=== PATIENT | male | born 1975 | race Caucasian/White ===

== ENCOUNTER 2022-09-04 04:12 | Emergency (ER) | payer OTHER, SELFPAY ==
[2022-09-04 04:16] VITALS: BP 141/92; PULSE 96; RESP 18; TEMP 36.6; O2SAT 99
--- NOTE | 2022-09-04 07:19 | ED.LOWEXIN ---
HPI - Extremity Injury (Lower) General Chief Complaint: Extremity Injury, Lower Stated Complaint: R foot/ankle injury Time Seen by Provider: 09/04/22 07:04 Source: patient and RN notes reviewed Mode of arrival: ambulatory Limitations: no limitations History of Present Illness HPI Narrative: THis is a 47 year old male who presents for evaluation of right foot pain. He states yesterday a heavy object hit his right foot, but he was able to walk. This morning he reports waking up with 8/10 pain. He was applying ice yesterday after the event occurred. Today he has not taken any medication for his pain. He has noticed red area at location of hit. He denies numbness or tingling. He is using crutches to walk. Related Data Allergies Allergy/AdvReac Type Severity Reaction Status Date / Time azithromycin Allergy Mild UNKNOWN Verified 09/04/22 07:02 Quinolones Allergy Unknown UNKNOWN Verified 09/04/22 07:02 Review of Systems Musculoskeletal: Musculoskeletal: Reports arthralgias Integumentary/Breasts: Skin/Breast: Denies rash and Denies skin ulcer PMFSH Past Medical History Medical History (Updated 09/04/22 @ 07:25 by Kirsten So MD) Low back pain Family History Family History Father Family history of colonic diverticulitis Grandparent Diabetes mellitus Family history of malignant neoplasm of breast Social History Social History Smoking status: Never smoker Second hand tobacco smoke exposure: No Alcohol intake: never Alcohol use details: occasionally Substance use: never Substance use type: does not use Living arrangements: alone Occupation/Education: occupation Gender identity (if verbalized by the patient): Male Spiritual care concerns: No Agree to blood products: No Exam Const: General: no acute distress and alert Nutritional Appearance: well nourished Orientation/consciousness: patient oriented x3 HENMT: Head: normal to inspection Eyes: EOM: EOMs intact bilaterally Resp: Effort & Inspection: normal respiratory effort Skin: Rashes: no rashes Wounds: no wounds Other: there is mild redness dorsum lateral right foot, no wound Neuro: General: patient oriented x3, moves all extremities and CN's II-XI intact bilaterally Extrem: General: no clubbing, cyanosis or edema and no pedal edema Other: point tenderness to right dorsum foot. strong pedal pulses. FROM Psych: Mental Status: mental status grossly normal Affect: normal affect Attitude: cooperative Course Reevaluation(s) Reevaluation #1: I discussed with patient that his xrays were negative for fracture. He should continue treatment with ice and NSAIDs Date: 09/04/22 Time: 07:23 Vital Signs Vital signs: Vital Signs Temperature 98 F 09/04/22 04:16 Pulse Rate 96 09/04/22 04:16 Respiratory Rate 18 09/04/22 04:16 Blood Pressure 141/92 H 09/04/22 04:16 Pulse Oximetry 99 09/04/22 04:16 Oxygen Delivery Room Air 09/04/22 04:16 Temperature 98 F 09/04/22 04:16 Pulse Rate 96 09/04/22 04:16 Respiratory Rate 18 09/04/22 04:16 Blood Pressure 141/92 H 09/04/22 04:16 Pulse Oximetry 99 09/04/22 04:16 Oxygen Delivery Room Air 09/04/22 04:16 MDM - Extremity Injury (Lower) Differential Diagnosis Differential diagnosis: Likely ankle sprain and strain, ankle fracture and other (foot contusion vs foot fracture) Imaging Data Radiologist's impression: ITS Impressions Ankle X-Ray 09/04/22 06:01 Impression: Unremarkable right ankle. Foot X-Ray 09/04/22 06:01 Impression: Unremarkable right foot radiographs. Discharge Plan Discharge Clinical Impression: Contusion of foot, right Qualifiers: Encounter type: initial encounter Qualified Code(s): S90.31XA - Contusion of right foot, initial encounter Patient Disposition: Home, Self-Care
== END 2022-09-04 08:04 | disposition home or self-care (01) ==
LOC: ANHED 07:35
PROVIDERS: Emergency Provider General Practice; PCP Family Medicine
DX: S90.31XA Contusion of right foot, initial encounter (principal); W22.8XXA Striking against or struck by other objects, initial encounter
CPT/HCPCS: 73610; 73630; 99283

== ENCOUNTER → 2022-10-09 15:21 | Outpatient (CLI) | payer OTHER, SELFPAY ==
--- NOTE | ~2022-10-09 | CT_ITS ---
EXAMINATION: CT abdomen pelvis wo con DATE: 10/09/2022 15:48 INDICATION: Calculus of kidney. TECHNIQUE: Computed tomography (CT) of the abdomen and pelvis was performed without intravenous contr ast. Automated exposure control and iterative reconstruction technique were employed. The dose-length product was 756.13 mGy-cm. COMPARISON: CT abdomen and pelvis 07/06/2011 FINDINGS: The visualized portions of the lung bases are clear without pneumonia or pleural effusion. The heart size is normal. No pericardial effusion. The liver, gallbladder, spleen, pancreas, and adre nal glands are normal. There is a 1.8 cm stone in right kidney. There is urothelial thickening in the right renal pelvis and right ureter. There is fat stranding around the right renal pelvis. There is a 6 mm stone in distal right ureter. There is mild right hydronephrosis. There are approximately 10 s tones in the left kidney and left renal pelvis measuring up to 13 mm. There is urothelial thickening of the left renal pelvis with adjacent fat stranding. The prostate is mildly enlarged. There are bila teral inguinal hernias containing fat. There is diverticulosis of the colon without evidence of diver ticulitis. The appendix is normal. There are no dilated loops of bowel. There are no pathologically e nlarged lymph nodes. There is no free intraperitoneal fluid. There are bridging endplate osteophytes at multiple levels in the thoracic spine, consistent with diffuse idiopathic skeletal hyperostosis (D JACOBO). There is mild lumbar spondylosis. IMPRESSION: 1. 6 mm stone in the distal right ureter with mild right hydronephrosis. 2. Bilateral nonobstructing kidney stones. 3. Bilateral pyelitis. Reviewed, dictated and finalized at location A.
--- NOTE | ~2022-10-09 | XR_ITS ---
EXAMINATION: XR abdomen/kub 1V DATE: 10/09/2022 15:48 INDICATION: Calculus of kidney. TECHNIQUE: A supine view of the abdomen on 2 radiographs was obtained. COMPARISON: CT abdomen and pelvis 09/19/2022 FINDINGS: There is a 6 mm stone or cluster of stones in distal right ureter. There is a 1.8 cm stone in right kidney. There are approximately 10 stones in left kidney and left renal pelvis measuring up to 13 mm. IMPRESSION: 1. Stones in the kidneys and distal right ureter. Reviewed, dictated and finalized at location A.
== END ==
PROVIDERS: PCP Family Medicine
DX: N13.6 Pyonephrosis (principal)
CPT/HCPCS: 74018; 74176

== ENCOUNTER 2022-11-06 00:25 | Day surgery (SDC) | payer OTHER, SELFPAY ==
[2022-11-01 15:37] VITALS: BMI 31.9
--- NOTE | 2022-11-01 15:43 | PC.NURSE ---
Report to the Outpatient Waiting Room, entrance under the green pavilion located off [facility], at time 10:30 on date 11/06/22. Planned Procedure Time: 12:30. Time changes happen often and if your time is changed the preop area will call you the afternoon before. - You and your visitor will be asked to self-screen and do not enter if you have any COVID symptoms. - A mask is optional within the hospital at this time. Patients may have clear liquids (water, carbonated beverages, clear teas, apple juice) until 3 hours prior to surgery (9:30) with a maximum of 20 ounces. - No food from midnight until time of surgery Take the following medications with a SIP of water the morning of surgery: TYLENOL IF NEEDED DO NOT STOP ANY OF YOUR OTHER PRESCRIPTION MEDICATIONS PRIOR TO SURGERY EXCEPT THE FOLLOWING Medications to discontinue per physician: MELOXICAM Date to take last dose: PER DR. MONTILLA Please no make-up, nail setswana, hairspray, perfume, deodorant, or body powder the day of surgery. No jewelry (including any body piercings) or valuables the day of surgery, leave them at home. Please take a shower or bath the night before, or the morning of, surgery with an antibacterial soap. Wear comfortable, loose fitting clothing. - Jewelry must be removed prior to entering the operating room. Rings and piercings that are not removed may be cut off. - The hospital will not accept responsibility for valuables. - Please leave all valuables, including medications, at home the day of surgery. If you are going home after surgery, a licensed skip load driver must drive you home. - NO public transportation without another adult if you receive anesthesia. - We recommend that an adult stay with you for 24 hours following discharge. - We also recommend that you do not drive, make important decision, drink alcoholic beverages, or take any drugs that were not prescribed by your health care provider for at least 24 hours after your discharge time. Follow any additional instructions given to you from your surgeon. If you or anyone in your household have experienced Covid symptoms in the past week, please notify your surgeon or the nurse liaison at the phone number below for possible testing. Telephone instructions given to PT - JUAN DIEGO CAMPBELL and asked if any additional questions and then verbalized understanding. Patient advised to call surgeon office or pre surgery nurse liaison [phone] if any additional questions.
[2022-11-06] VITALS (8 sets, daily range): BP systolic 116–147; BP diastolic 74–100; PULSE 69–90; RESP 12–20; TEMP 36.1–36.4; O2SAT 98–100
--- NOTE | ~2022-11-06 | XR_ITS ---
EXAMINATION: XR retrograde pyelogram BI DATE: 11/06/2022 12:04 INDICATION: Right internal ureteral stent placement TECHNIQUE: Fluoroscopic images from a right internal ureteral stent placement are submitted for oriana radford 47 seconds of fluoroscopy time. FINDINGS: Left retrograde pyelogram demonstrates multiple filling defects in the left renal pelvis, c onsistent with stones. There is a right double-J internal ureteral stent projecting in expected position, with proximal [place] loop at the level of the renal pelvis and distal loop in the pelvis within the bladder lumen. IMPRESSION: 1. Right internal ureteral stent placement. Please refer to real-time procedural findings for detai ls. Reviewed, dictated and finalized at location L. IMPRESSION: 1. Right internal ureteral stent placement. Please refer to real-time procedu ral findings for details.
--- NOTE | 2022-11-06 09:42 | WPDHPUPDATE1 ---
History and Physical Update Update Date/Time: 11/06/22 09:42 History and Physical has been reviewed, including an updated exam of the patient. There are NO changes in the patient's condition. Risks, benefits, and alternatives have been discussed and questions answered. Patient agrees to proceed with procedure. Proceed with cysto, right retrograde pyelogram, right ureteroscopy with holmium laser, stone extraction, stent placement
--- NOTE | 2022-11-06 10:30 | WPDANESEPPF ---
Anes - Initial Pre Proc Eval Procedure: Operation Date: 11/06/22 12:00 Proposed Procedures p Cystoscopy, Right Ureteroscopy, Right Stone Extraction, Right Retrograde Pyelogram, Right Stent Placement, Possible Holmium Laser Lithotripsy - Pastor Doe MD Date/Time: 11/06/22 10:30 Surgeon: Pastor Doe MD Pre Op Diagnosis: Rt Ureteral Stone Patient Data Age: 47 Gender: M Height: 1.8 m Weight: 104 kg Allergies Allergy/AdvReac Type Severity Reaction Status Date / Time azithromycin Allergy Mild UNKNOWN Verified 11/01/22 15:47 Quinolones Allergy Unknown Other Verified 11/01/22 15:35 Home Medications Medication Instructions Recorded Confirmed Type acetaminophen 500 mg tablet 1,000 mg PO QID PRN Pain 11/01/22 11/01/22 History cyclobenzaprine 10 mg tablet 10 mg PO TID PRN Muscle Spasm 11/01/22 11/01/22 History meloxicam 15 mg tablet 15 mg PO DAILY PRN Pain 11/01/22 11/01/22 History tamsulosin 0.4 mg capsule 0.4 mg PO DAILY 11/01/22 11/01/22 History turmeric 400 mg capsule 1 mg PO DAILY 11/01/22 11/01/22 History Laboratory Tests 11/06/22 10:21 Urine Color Pending Urine Appearance Pending Urine pH Pending Ur Specific Nunnelly Pending Urine Protein Pending Urine Glucose (UA) Pending Urine Ketones Pending Ur Blood (Man) Pending Urine Nitrate Pending Urine Bilirubin Pending Urine Urobilinogen Pending Leukocyte Esterase Rfl Pending Patient hx anesthesia problems: none Family hx anesthesia problems: none Results Review: All pre-operative results and documents have been reviewed as part of the pre-operative evaluation. [facility] Past Medical History Medical History Low back pain Family History Family History Father Family history of colonic diverticulitis Grandparent Diabetes mellitus Family history of malignant neoplasm of breast Social History Social History Smoking status: Former smoker Tobacco type: cigars Second hand tobacco smoke exposure: No Alcohol intake: current Alcohol use details: RARE Substance use: current Substance use type: marijuana Living arrangements: alone Occupation/Education: occupation Gender identity (if verbalized by the patient): Male Spiritual care concerns: No Agree to blood products: No Anes - Eval Final PreProcedure Day of Procedure 11/06/22 10:30 Patient weight: obese Heart: regular rate and rhythm Lungs: clear to auscultation Airway: Mallampati scale class II Neurological: alert and oriented Last oral intake: >/= 8 hours ASA classification: II Emergent: no Anesthetic plan: proceed Anesthesia type and monitoring: general LMA and standard monitoring Results Review: All pre-operative results and documents have been reviewed as part of the pre-operative evaluation. Informed Consent: The patient's anesthetic plan and its attendant risks and benefits were discussed with the patient/family/POA. Questions were solicited and answers provided to the satisfaction of the patient/family/POA.
[2022-11-06] MEDS: LACTATED RINGERS 1,000 ML 30 ML IV CONT (10:31)
[2022-11-06 10:35] LABS: Appearance Urine Clear (Clear); Bacteria Urine None Seen /hpf; Bilirubin Urine Negative (Negative); Blood Urine 2+ (Negative); Color Urine Yellow (Yellow); Glucose Urine UA Negative (Negative); Ketones Urine Negative (Negative); Leukocyte Esterase Ur 2+ LEU/UL (Negative); Nitrate Urine Negative (Negative); Protein Urine 2+ mg/dL (Negative); RBC Urine 21-50 /hpf (0-2); Specific Grav Ur 1.017 (1.001-1.035); Squamous Epithelial Cell Urine None seen /hpf (Few); Urobilinogen Urine 0.2 mg/dL (<2.0); WBC Urine >100 /hpf; pH Urine 6.5 (5.0-9.0)
[2022-11-06 10:38] LABS: Add Urine Microscopic? YES
[2022-11-06] MEDS: ceFAZolin 2 GM/D5W 50 ML 2 GM/50 ML BAG IVPB (10:54)
[2022-11-06] MEDS: LIDOCAINE HCL 2% GEL UROJET 10 ML PKG MUCOUS MEM (11:36)
--- NOTE | 2022-11-06 11:57 | P.OP_ITS ---
Procedure Note - Detailed Date of Procedure 11/06/22 Pre-op Diagnosis Rt Ureteral Stone 6-7 mm, 18 mm right renal pelvic stone, left lower quadrant discomfort Post-op Diagnosis Same Procedure Performed Cystoscopy, right ureteroscopy with extraction of right distal ureteral calculus, right ureteroscopy with holmium laser of right renal pelvic stone 18 mm, bilateral retrograde pyelograms, right ureteral stent placement 4.8 Prydeinig contour Surgeon Pastor Doe MD Anesthesia General Description of Procedure Patient was taken to the operative suite correctly identified. Once anesthesia was obtained he was placed in dorsal lithotomy position and prepped and draped usual sterile fashion. Twenty-two Prydeinig scope was inserted bladder. There were no tumors noted. The right ureteral orifice was cannulated with a guidewire. Rigid ureteral scope was inserted after I dilated the orifice with an 8/10 dilator. The stone was visualized. Using escape basket I was able to retrieved and sent for analysis. I then placed a ureteral access sheath in. A mini flexible ureteral scope was passed up into the kidney. He has an 18 mm right renal pelvic stone. We dusted the stone. All the pieces were extremely small or dust. I then did a pyelogram to confirm placement of the stent. 4.8 Prydeinig contour stent was placed with the proximal end coiled in the renal pelvis and the distal in the bladder. Given his slight discomfort in the left side I then did a pyelogram. I did not feel see any discrete filling defects in the ureter. The bladder was drained. 2% viscous lidocaine was inserted into the urethra patient is taken recovery stable condition. He will follow-up in 1-2 weeks with a KUB for most likely stent removal on the right. He will then require a PCNL on the left side by 1 of my partners. This completes the dictation. Please send a copy to my office Estimated Blood Loss 0 Drains Yes Packing No Pathology Yes Complications No immediate complications Condition Stable Disposition PACU
[2022-11-06] MEDS: oxyCODONE HCL (*CRX) 5 MG TAB IR PO (13:00)
== END 2022-11-06 12:35 | disposition home or self-care (01) ==
PROVIDERS: PCP Family Medicine; Visit Provider Urology
PROC: (CPT 52352; principal; 2022-11-06 12:00)
DX: N20.2 Calculus of kidney with calculus of ureter (principal)
CPT/HCPCS: 52356; 52352; 74420; 81001; 82365; 87086; 88300; A9270; C1758; C1769; C1894; C2617; J0690; J2250; J2405; J2704; J3010; J7120

== ENCOUNTER → 2022-11-21 12:08 | Outpatient (CLI) | payer OTHER, SELFPAY ==
--- NOTE | ~2022-11-21 | XR_ITS ---
XR abdomen/kub 1V DATE: 11/21/2022 12:39 INDICATION: Right renal stone TECHNIQUE: 2 AP views COMPARISON: 11/06/2022 retrograde pyelogram 10/09/2022 KUB 10/09/2022 CT abdomen pelvis 10/09/2022 KUB FINDINGS: More than 10 stones are again noted overlying left renal pelvis and the mid and lower pole left kidney. There is a right internal urinary stent, proximal pigtail overlying the expected position of the prox imal right ureter at the L1-2 level, distal pigtail overlying the right side of the urinary bladder. Probable faintly calcified stone fragments are noted overlying the lower pole the right kidney and li rika the proximal right ureter. Noncontrast CT examination would be more definitive for detection of the stone fragments from presumed recent right lithotripsy of 9.5 x 14 mm calcified stone noted on . No evidence of bowel obstruction. The psoas shadows are intact. No apparent visceromegaly. Diffuse idiopathic skeletal hyperostosis of the thoracic spine. Mild degenerative change of the lumba r spine. IMPRESSION: Probable small faintly calcified lithotripsy stone fragments of lower pole of right kidne y and proximal right ureter Right internal urinary stent Multiple left renal calculi Reviewed, dictated and finalized at Location A. Reviewed, dictated and finalized at location [] IMPRESSION: Probable small faintly calcified lithotripsy stone fragments of low er pole of right kidney and proximal right ureter Right internal urinary stent Multiple left renal calculi
== END ==
PROVIDERS: PCP Family Medicine; Visit Provider Urology
DX: N20.0 Calculus of kidney (principal)
CPT/HCPCS: 74018

== ENCOUNTER → 2022-11-27 15:24 | Outpatient (CLI) | payer OTHER, SELFPAY ==
--- NOTE | ~2022-11-27 | CT_ITS ---
EXAMINATION: CT abdomen pelvis wo con DATE: 11/27/2022 15:46 INDICATION: Renal stone TECHNIQUE: Computed tomography (CT) of the abdomen and pelvis was performed without intravenous contr ast. The dose-length product was 799.49 mGy-cm. Automated exposure control and iterative reconstructi on technique were employed. COMPARISON: CT dated 10/09/2022. FINDINGS: Lung bases are unremarkable. Heart size normal. No significant pleural or pericardial effus ion. The liver, spleen, pancreas, adrenal glands and are unremarkable. Gallbladder is present. Nonobstruct chaz bowel pattern. Normal appendix. Colonic diverticulosis without evidence for diverticulitis. There are multiple bilateral renal stones. There is a right internal ureteral stent in expected posit ion. There is mild urothelial enhancement of the right renal pelvis and proximal ureter with subtle s urrounding edema. Bladder is decompressed. Colonic diverticulosis without evidence for diverticulitis . There is a fat-containing left inguinal hernia. No significant vascular abnormality. No lymphadenop athy. There is osteoarthritis of the hips. There is mild lumbar spondylosis. IMPRESSION: 1. Nonobstructing bilateral renal stones. Right internal ureteral stent in expected position. 2: Mild urothelial enhancement of the right renal pelvis and proximal ureter with subtle surrounding inflammation. Cannot exclude ascending urinary tract infection. Reviewed, dictated and finalized at location [] IMPRESSION: 1. Nonobstructing bilateral renal stones. Right internal ureteral stent in expe cted position. 2: Mild urothelial enhancement of the right renal pelvis and proximal ureter w ith subtle surrounding inflammation. Cannot exclude ascending urinary tract inf ection.
== END ==
PROVIDERS: PCP Urology; Visit Provider Urology
DX: N20.0 Calculus of kidney (principal)
CPT/HCPCS: 74176

== ENCOUNTER 2022-12-11 00:34 | Day surgery (SDC) | payer OTHER, SELFPAY ==
--- NOTE | 2022-12-06 10:06 | PC.NURSE ---
Report to the Outpatient Waiting Room, entrance under the green pavilion located off [facility], at time 1130 on date 12/11/22. Planned Procedure Time: 1330. Time changes happen often and if your time is changed the preop area will call you the afternoon before. - You and your visitor will be asked to self-screen and do not enter if you have any COVID symptoms. - A mask is optional within the hospital at this time. Patients may have clear liquids (water, carbonated beverages, clear teas, apple juice) until 3 hours prior to surgery with a maximum of 20 ounces. - No food from midnight until time of surgery Take the following medications with a SIP of water the morning of surgery: TYLENOL OR TRAMADOL IF NEEDED DO NOT STOP ANY OF YOUR OTHER PRESCRIPTION MEDICATIONS PRIOR TO SURGERY ?EXCEPT THE FOLLOWING Medications to discontinue per physician: N/A Date to take last dose: N/A Please no make-up, nail hungarian, hairspray, perfume, deodorant, or body powder the day of surgery. No jewelry (including any body piercings) or valuables the day of surgery, leave them at home. Please take a shower or bath the night before, or the morning of, surgery with an antibacterial soap. Wear comfortable, loose fitting clothing. - Jewelry must be removed prior to entering the operating room. Rings and piercings that are not removed may be cut off. - The hospital will not accept responsibility for valuables. - Please leave all valuables, including medications, at home the day of surgery. If you are going home after surgery, a licensed sales warehouse driver must drive you home. - NO public transportation without another adult if you receive anesthesia. - We recommend that an adult stay with you for 24 hours following discharge. - We also recommend that you do not drive, make important decision, drink alcoholic beverages, or take any drugs that were not prescribed by your health care provider for at least 24 hours after your discharge time. Follow any additional instructions given to you from your surgeon. If you or anyone in your household have experienced Covid symptoms in the past week, please notify your surgeon or the nurse liaison at the phone number below for possible testing. Telephone instructions given to PT Idania CAMPBELL and asked if any additional questions and then verbalized understanding. Patient advised to call surgeon office or pre surgery nurse liaison [phone] if any additional questions.
[2022-12-06 10:11] VITALS: BMI 30.7
[2022-12-11] VITALS (7 sets, daily range): BP systolic 113–136; BP diastolic 84–99; PULSE 62–72; RESP 15–19; TEMP 36.1–36.2; O2SAT 98–100; BMI 31.0
--- NOTE | ~2022-12-11 | XR_ITS ---
EXAMINATION: XR retrograde pyelo w/stent RT DATE: 12/11/2022 12:20 CDT INDICATION: RETRO/STENT . TECHNIQUE: 8 fluoroscopic images of the abdomen and pelvis were obtained during right retrograde pyel ography with stent placement performed by the surgeon. I was not present in the operating room. Fluor oscopy exposure time was 17.4 seconds. DAP [id number] [id number]. COMPARISON: CT abdomen pelvis 11/27/2022 FINDINGS: Second Shift Supervisor views reveal the presence of a right ureteral stent. Wire and catheter access into the upper co llecting system was then obtained, followed by deployment of a new stent, into good position. IMPRESSION: Fluoroscopic documentation of right retrograde pyelography with stent placement. Please refer to the operative note for complete procedural details. Reviewed, dictated and finalized at location K. IMPRESSION: Fluoroscopic documentation of right retrograde pyelography with stent placement . Please refer to the operative note for complete procedural details.
[2022-12-11] MEDS: LACTATED RINGERS 1,000 ML 30 ML IV CONT ×2 (10:55→12:55)
--- NOTE | 2022-12-11 11:19 | WPDANESEPPF ---
Anes - Initial Pre Proc Eval Procedure: Operation Date: 12/11/22 12:30 Proposed Procedures p Cystoscopy with Right Stent Removal - Pastor Doe MD Date/Time: 12/11/22 11:19 Surgeon: Pastor Doe MD Pre Op Diagnosis: retained right stent Patient Data Age: 47 Gender: M Height: 1.8 m Weight: 100.9 kg Last Vital Signs Temp 97.2 F L 12/11/22 10:35 Pulse 62 12/11/22 10:35 Resp 18 12/11/22 10:35 BP 113/85 12/11/22 10:35 Pulse Ox 99 12/11/22 10:35 O2 Del Method Room Air 12/11/22 10:35 Allergies Allergy/AdvReac Type Severity Reaction Status Date / Time azithromycin Allergy Mild UNKNOWN Verified 12/11/22 10:43 Quinolones Allergy Unknown Other Verified 12/11/22 10:43 Home Medications Medication Instructions Recorded Confirmed Type acetaminophen 500 mg tablet 1,000 mg PO QID PRN Pain 11/01/22 12/06/22 History tamsulosin 0.4 mg capsule 0.4 mg PO DAILY 11/01/22 12/06/22 History oxybutynin chloride 5 mg tablet 5 mg PO TID 12/06/22 12/06/22 History tramadol 50 mg tablet 50 mg PO Q6H PRN Pain 12/06/22 12/06/22 History Patient hx anesthesia problems: none Family hx anesthesia problems: none Results Review: All pre-operative results and documents have been reviewed as part of the pre-operative evaluation. [facility] Past Medical History Medical History Low back pain Family History Family History Father Family history of colonic diverticulitis Grandparent Diabetes mellitus Family history of malignant neoplasm of breast Social History Social History Smoking status: Former smoker Tobacco type: cigars Second hand tobacco smoke exposure: No Alcohol intake: current Alcohol use details: RARE Substance use: current Substance use type: marijuana Living arrangements: alone Occupation/Education: occupation Gender identity (if verbalized by the patient): Male Spiritual care concerns: No Agree to blood products: No Anes - Eval Final PreProcedure Day of Procedure 12/11/22 11:19 Patient weight: obese Heart: regular rate and rhythm Lungs: clear to auscultation Airway: Mallampati scale class II Neurological: alert and oriented Last oral intake: >/= 8 hours ASA classification: II Emergent: no Anesthetic plan: proceed Anesthesia type and monitoring: general LMA and standard monitoring Results Review: All pre-operative results and documents have been reviewed as part of the pre-operative evaluation. Informed Consent: The patient's anesthetic plan and its attendant risks and benefits were discussed with the patient/family/POA. Questions were solicited and answers provided to the satisfaction of the patient/family/POA.
--- NOTE | 2022-12-11 11:19 | WPDHPUPDATE1 ---
History and Physical Update Update Date/Time: 12/11/22 11:19 History and Physical has been reviewed, including an updated exam of the patient. There are NO changes in the patient's condition. Risks, benefits, and alternatives have been discussed and questions answered. Patient agrees to proceed with procedure. Proceed with cysto with ureteral stent removal
--- NOTE | 2022-12-11 11:28 | WPDHPUPDATE1 ---
History and Physical Update Update Date/Time: 12/11/22 11:28 History and Physical has been reviewed, including an updated exam of the patient. There are NO changes in the patient's condition. Risks, benefits, and alternatives have been discussed and questions answered. Patient agrees to proceed with procedure. Review of ct shows stones in renal pelvis and lower pole. Will plan on cysto, right retrograde, right ureteroscopy with laser, stent exchange.
[2022-12-11] MEDS: ceFAZolin 2 GM/D5W 50 ML 2 GM/50 ML BAG IVPB (11:51)
[2022-12-11] MEDS: LIDOCAINE HCL 2% GEL UROJET 10 ML PKG MUCOUS MEM (12:43)
--- NOTE | 2022-12-11 12:48 | P.OP_ITS ---
Procedure Note - Detailed Date of Procedure 12/11/22 Pre-op Diagnosis retained right stent, right renal calculi Post-op Diagnosis Same Procedure Performed Cystoscopy, right retrograde pyelogram, right ureteroscopy with holmium laser, right ureteral stent exchange Surgeon Pastor Doe MD Anesthesia General Description of Procedure Patient is taken the operative suite correctly identified. Once anesthesia was obtained was placed in dorsal lithotomy position prepped draped usual sterile fashion. Nineteen [place] scope inserted the bladder. The stent was grasped brought out to the meatus. We could not get a wire through it due to calcification. This was then removed. A guidewire was then passed up into the orifice up to the kidney. Ureteral access sheath was placed. Mini flexible scope was inserted. Patient S kidney was inspected in its entirety. He had couple of calices that had small stones present. Using a 200 micron fiber we dusted these further. There were no large stones noted. Most likely these CT findings were layering in the stone. None the less was no significant stone burden at termination procedure. Pyelogram was then performed confirm placement stent. 4.8 [place] contour stent was then placed with proximal end coiled in the renal pelvis and the distal in the bladder. We left a string attached to the could be removed in a couple of days. This completes dictation this patient please send a copy this note to my office. Drains Yes Packing No Pathology None sent Complications No immediate complications Condition Stable Disposition PACU
[2022-12-11] MEDS: oxyCODONE HCL (*CRX) 5 MG TAB IR PO (14:10)
--- NOTE | 2022-12-11 14:13 | SUR.PHASEII ---
Spoke with Dr. Doe regarding patient's request for work excuse note. Dr. Reyes stated patient can return to work on Saturday. Also notified Dr. Doe patient was requesting prescription for pain medication.
== END 2022-12-11 14:30 | disposition home or self-care (01) ==
PROVIDERS: PCP Family Medicine; Visit Provider Urology
PROC: (CPT 52310; principal; 2022-12-11 12:30)
DX: N20.0 Calculus of kidney (principal); Z87.891 Personal history of nicotine dependence; F12.90 Cannabis use, unspecified, uncomplicated; E66.9 Obesity, unspecified; Z68.31 Body mass index [BMI] 31.0-31.9, adult
CPT/HCPCS: 52356; 74420; A9270; C1894; C2617; J0690; J1100; J2250; J2704; J3010; J7120; Q9966

== ENCOUNTER 2022-12-24 17:34 | Outpatient (CLI) | payer OTHER, SELFPAY ==
[2022-12-24 18:04] LABS: Amylase 112 U/L (30-110); Lipase 83 U/L (23-300)
== END 2022-12-24 17:35 | disposition home or self-care (01) ==
LOC: ANHLAB 17:36
PROVIDERS: PCP Family Medicine; Visit Provider Physician Assistant
DX: R10.9 Unspecified abdominal pain (principal)
CPT/HCPCS: 36415; 82150; 83690

== ENCOUNTER → 2022-12-28 08:37 | Outpatient (CLI) | payer OTHER, SELFPAY ==
--- NOTE | ~2022-12-28 | XR_ITS ---
EXAMINATION: XR abdomen/kub 1V INDICATION: Calcium kidney stone TECHNIQUE: Supine views of the abdomen were obtained on 2 radiographs. COMPARISON: 11/21/2022; CT, 11/27/2022 FINDINGS: The right internal ureteral stent has been removed. No definite right-sided urolithiasis is identified. Multiple stones are again noted in the left renal pelvis which measure up to 10 [address]. At l east six additional stones are noted in the left kidney which measure up to 9 mm. No stones are ident ified in the ureters or the urinary bladder. The bowel gas pattern is normal. 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 IMPRESSION: 1. Interval removal of the right internal ureteral stent without evidence of right sided urolithiasis . 2. Multiple stones of the left kidney including multiple stones in the left renal pelvis. Reviewed, dictated and finalized at location B. IMPRESSION: 1. Interval removal of the right internal ureteral stent without evidence of ri ght sided urolithiasis. 2. Multiple stones of the left kidney including multiple stones in the left evonne al pelvis.
--- NOTE | ~2022-12-28 | US_ITS ---
Renal-Bladder ultrasound Clinical History: Renal stone Technique: Real-time sonographic imaging of the kidneys and urinary bladder was performed. Findings: The right kidney measures 13.3 cm in length and the left kidney measures 12.8 cm. Multiple left renal stones are present, measuring up to 17 mm in maximum diameter. There is probable mild left hydronephrosis. No right renal stone or right hydronephrosis evident. Renal cortical echogenicity is within normal limits. No renal mass lesion is identified. The urinary bladder is moderately distended at the time of this exam. No intraluminal echoes are iden tified. No abnormal wall thickening is seen. Impression: Multiple left renal stones and probable mild left hydronephrosis. Reviewed, dictated and finalized at location . Impression: Multiple left renal stones and probable mild left hydronephrosis.
== END ==
PROVIDERS: PCP Family Medicine; Visit Provider Urology
DX: N20.0 Calculus of kidney (principal)
CPT/HCPCS: 74018; 76770